=== PATIENT | female | born 1965 | race Caucasian/White ===

== ENCOUNTER 2016-09-08 19:03 | Emergency (ER) | payer OTHER ==
[2016-09-08 19:30] VITALS: BP 143/73
--- NOTE | 2016-09-08 20:35 | RAD ---
Indication: Pain on palpation anterolateral aspect LEFT knee following injury. Comparison: No relevant prior exams available on [place] [facility] [place]. Technique: LEFT knee: AP, tunnel, lateral, sunrise views. Report: Normal articular alignment. Negative for effusion or fracture. No significant arthropathic change evident. Unremarkable soft tissue contours. IMPRESSION: Negative exam.
--- NOTE | 2016-09-08 20:38 | RAD ---
Indication: Severe low back pain when bending post fall last night. Comparison: January 31, 2016 CT. Technique: AP and lateral views lumbar sacral spine. Report: Alignment is anatomic. No cortical disruption or trabecular impaction to indicate a vertebral body fracture. Diffuse mild vertebral endplate osteophytosis. Negative for significant disc space narrowing. Diffuse facet joint osteoarthritis increasing in severity extending caudal. Unremarkable soft tissue contours. Peripheral eggshell pattern calcified nodules at the RIGHT upper quadrant corresponding with gallstones on CT. IUD noted. IMPRESSION: No traumatic injury of the lumbar sacral spine evident. Mild degenerative spondylosis and facet joint osteoarthritis.
--- NOTE | 2016-09-08 21:19 | UC ---
Minor Trauma HPI - HPI Summary HPI Summary: FALL DOWN STEPS THIS MORNING, SINCE INJURY HAS HAD LOW BACK PAIN AND LEFT KNEE PAIN. HISTORY OF OSTEOPENIA. NO LOSS OF CONTROL OF BLADDER OR BOWELS. ABLE TO BEAR WEIGHT. - History of Current Complaint Chief Complaint: UCBackPain Stated Complaint: BACK,ARM,LEG INJURIES FROM FALL Time Seen by Provider: 09/08/16 19:54 Hx Obtained From: Patient Hx Last Menstrual Period: 1 week ago Onset/Duration: Sudden Onset, Lasting Hours, Still Present Onset Of Pain: Post Accident Severity Initially: Mild Severity Currently: Mild Mechanism Of Injury: Fall From A Standing Position Aggravating Factor(s): Movement Alleviating Factor(s): Nothing - Risk Factors Penetrating Injury Risk Factors: Negative - Allergies/Home Medications Allergies/Adverse Reactions: Allergies Allergy/AdvReac Type Severity Reaction Status Date / Time No Known Allergies Allergy Verified 09/08/16 19:30 PMH/Surg Hx/FS Hx/Imm Hx Previously Healthy: Yes - Surgical History Surgical History: Yes Surgery Procedure, Year, and Place: thyroidectomy for thyroid cancer - Family History Known Family History: Positive: Hypertension, Diabetes, Other - Cancer Negative: Cardiac Disease - Social History Lives: With Family Alcohol Use: None Substance Use Type: None Smoking Status (MU): Never Smoked Tobacco Review of Systems Constitutional: Negative Skin: Negative Eyes: Negative ENT: Negative Respiratory: Negative Cardiovascular: Negative Gastrointestinal: Negative Genitourinary: Negative Motor: Negative Neurovascular: Negative Musculoskeletal: Arthralgia, Myalgia Neurological: Negative Psychological: Negative All Other Systems Reviewed And Are Negative: Yes Physical Exam Triage Information Reviewed: Yes Appearance: Well-Appearing, Well-Nourished, Pain Distress - MILD Vital Signs: Initial Vital Signs Temp 98.1 F 09/08/16 19:25 Pulse 85 09/08/16 19:25 Resp 20 09/08/16 19:25 BP 143/73 09/08/16 19:25 Pulse Ox 99 09/08/16 19:25 Vital Signs Reviewed: Yes Eye Exam: Normal ENT Exam: Normal ENT: Positive: Normal ENT inspection, Hearing grossly normal, Pharynx normal, TMs normal Dental Exam: Normal Neck exam: Normal Neck: Positive: Supple, Nontender, No Lymphadenopathy Respiratory Exam: Normal Respiratory: Positive: Chest non-tender, Lungs clear, Normal breath sounds, No respiratory distress Cardiovascular Exam: Normal Cardiovascular: Positive: RRR, No Murmur, Pulses Normal Abdominal Exam: Normal Abdomen Description: Positive: Nontender, No Organomegaly Musculoskeletal: Positive: Strength Intact, ROM Intact, No Edema, Other: - PAIN TO PALPATION OF LEFT KNEE AND LEF PATELLA; NEGATIVE MCMURRAYS. NEGATIVE STRAIGHT LEG RAISE TEST Neurological Exam: Normal Psychological Exam: Normal Skin Exam: Normal Minor Trauma Course/Dx - Differential Dx/Diagnosis Differential Diagnosis/HQI/PQRI: Contusion(s), Sprain, Strain Provider Diagnoses: LEFT KNEE CONTUSION; MILD DEGENERATIVE SPONDYLOSIS & FACET JOINT OSTEOARTHRITIS Discharge - Discharge Plan Condition: Stable Disposition: HOME Prescriptions: Cyclobenzaprine TAB* [Flexeril 10 MG TAB*] 10 mg PO BID PRN #10 tab PRN Reason: Spasms Patient Education Materials: Osteoarthritis (ED), Knee Pain (ED), Degenerative Disc Disease (ED) Referrals: Esdras Egan MD [Primary Care Provider] - Additional Instructions: PHYSICAL THERAPY REFERRAL: You have been prescribed physical therapy. Treatments may include stretching, exercise, application of heat or cold, and other modalities. After an injury, PT can reduce swelling and pain. In recovery, PT is used to restore mobility and strength. Your specific treatment goals are: __X___ Reduction of Swelling (EGS, US, ice as needed) __X___ Pain Reduction (EGS, US, ice as needed) __X___ TENS Pack Fitting and Instruction Wound Hydrotherapy Preservation of Mobility __X___ Nondenominational of Mobility __X___ Strength Nondenominational ____X_ Work or Sports Hardening This instruction sheet also serves as your PHYSICAL THERAPY REFERRAL! Please take it with you to the therapist, so he/she will be aware of your diagnosis and treatment plan. You may see the physical therapist of your choice for these treatments, but may wish to check with your insurance to be sure the provider you select is covered. It's important to see the doctor to whom you have been referred for follow up.
== END 2016-09-08 21:15 | disposition home or self-care (01) ==
LOC: UCEAST 19:03
DX: S80.02XA Contusion of left knee, initial encounter (principal); W10.9XXA Fall (on) (from) unspecified stairs and steps, initial encounter; Y93.9 Activity, unspecified; Y92.9 Unspecified place or not applicable; Y99.9 Unspecified external cause status; M47.896 Other spondylosis, lumbar region
CPT/HCPCS: 72100; 99212; G0463

== ENCOUNTER 2021-01-17 09:45 | Inpatient (IN) ==
[2021-03-06] MEDS ORDERED: Buffered Lidocaine 1% SYRIN 1 ml INTRADERM ONE (06:00)
[2021-03-06] MEDS ORDERED: Lactated Ringers 1000 ml BAG 1,000 ML IV SCH (06:00)
[2021-03-06] MEDS ORDERED: ceFAZolin 2 GM PREMIX 2 GM/50 ML BAG ONE (06:15)
[2021-03-06] MEDS ORDERED: Heparin 5000 UNITS/ML 1 mL VIAL ONE (06:15)
[2021-03-06] MEDS ORDERED: ceFAZolin 1 GM ADVAN 1 GM ADDV.VIAL IVPB ONE (06:15)
[2021-03-06] MEDS ORDERED: Bupivacaine 0.5% SDV PF 30ML VIAL ONE (07:07)
[2021-03-06] MEDS ORDERED: Lidocaine 2% w/ EPI 1:200,000 MPF 20 ML SDV VIAL ONE (07:07)
[2021-03-06] MEDS ORDERED: Methylene Blue 0.5 % 50 MG/10 ML AMP IV ONE (07:08)
[2021-03-06] MEDS ORDERED: Midazolam 2 mg/2 ml VIAL 1 mg/ml 2 ml VIAL (2 mg) ONE (07:20)
[2021-03-06] MEDS ORDERED: fentaNYL 250 mcg/5 ml 50 MCG/ML 5 ml VIAL (250 MCG) ONE (07:20)
[2021-03-06] MEDS ORDERED: Rocuronium 50 mg VIAL 10 mg/ml 5 ml VIAL (50 mg) ONE ×2 (07:20→09:11)
[2021-03-06] MEDS ORDERED: Propofol 10 MG/ML 20 ML BTL ONE ×2 (07:24→11:11)
[2021-03-06] MEDS ORDERED: Lidocaine 2% PF 5 ML VIAL ONE ×2 (07:24→11:11)
[2021-03-06] MEDS ORDERED: Succinylcholine 200 mg VIAL 20 mg/ml 10 ml VIAL (200 mg) ONE (07:35)
[2021-03-06] MEDS ORDERED: Artificial Tear OPHTH.OINT 3.5 GM ONE (08:14)
[2021-03-06] MEDS ORDERED: Dexamethasone IV 4 MG/ML VIAL 1 ml VIAL ONE (08:27)
[2021-03-06] MEDS ORDERED: Ondansetron 4 mg VIAL 2 MG/ML 2 ml VIAL ONE (08:27)
[2021-03-06] MEDS ORDERED: Naloxone 0.4 mg VIAL 0.4 mg/ml 1 ml VIAL IV PRN (09:50)
[2021-03-06] MEDS ORDERED: DiMENhydriNATE IV 50 mg/ml 1 ml VIAL IV PUSH PRN (09:50)
[2021-03-06] MEDS ORDERED: HYDROmorphone 1 MG/1 ML SYRINGE IV PRN (09:50)
[2021-03-06] MEDS ORDERED: fentaNYL 100 mcg/2 ml 50 MCG/ML VIAL IV PRN (09:50)
[2021-03-06] MEDS ORDERED: Ondansetron 4 mg VIAL 2 MG/ML 2 ml VIAL IV PRN ×2 (09:50→10:59)
[2021-03-06] MEDS ORDERED: Acetaminophen IV 1 GM/100ML 100 ML IV ONE ×2 (09:50→09:59)
[2021-03-06] MEDS ORDERED: HYDROmorphone 0.5 MG/0.5 ML SYRINGE ONE ×2 (10:12→10:13)
[2021-03-06] MEDS ORDERED: Phenylephrine 40 mcg/mL 10mL (400mcg) SYRINGE ONE (10:17)
[2021-03-06] MEDS ORDERED: Sugammadex 500 MG/5 ML 5 ml VIAL IV PUSH ONE (10:26)
[2021-03-06] MEDS ORDERED: HYDROmorphone 1 MG/1 ML SYRINGE IV SLOW PU PRN (11:02)
[2021-03-06] MEDS ORDERED: HYDROmorphone 0.5 MG/0.5 ML SYRINGE IV SLOW PU PRN (11:02)
[2021-03-06] MEDS ORDERED: diPHENhydraMINE IV 50 MG/ML 1 ml VIAL (BENADRYL) SLOW PUSH PRN (11:02)
[2021-03-06] MEDS ORDERED: Albuterol HFA INHALER 8 gm MDI INH PRN (11:04)
[2021-03-06] MEDS: Lactated Ringers 1000 ml BAG 1,000 ML IV SCH ×2 (12:54→20:20)
[2021-03-06] MEDS: Acetaminophen IV 1 GM/100ML 100 ML IV SCH ×2 (13:02→18:09)
[2021-03-06] MEDS: Heparin 5000 UNITS/ML 1 mL VIAL SUBCUT SCH ×2 (13:05→22:14)
[2021-03-06] MEDS ORDERED: Dextrose 50% Syringe 50 ml 25 GM/50 ML SYRINGE IV PUSH PRN (15:34)
[2021-03-06] MEDS: Famotidine IV 10 MG/ML 2 ml VIAL (20 mg) IV SLOW PU SCH (22:14)
[2021-03-07] MEDS: Acetaminophen IV 1 GM/100ML 100 ML IV SCH ×3 (00:19→13:08)
[2021-03-07] MEDS: Lactated Ringers 1000 ml BAG 1,000 ML IV SCH ×2 (03:22→10:45)
[2021-03-07] MEDS ORDERED: Levothyroxine 100 MCG/5 ML VIAL IV SCH (06:00)
[2021-03-07] MEDS: Heparin 5000 UNITS/ML 1 mL VIAL SUBCUT SCH ×2 (06:34→17:29)
[2021-03-07] MEDS: Famotidine IV 10 MG/ML 2 ml VIAL (20 mg) IV SLOW PU SCH (08:33)
[2021-03-07] MEDS ORDERED: D5W 1/2 NS KCl 20 meq 1000 ml 1,000 ML IV SCH (11:00)
[2021-03-07 15:44] VITALS: BP 152/77
== END 2021-03-07 17:20 | disposition home or self-care (01) | DRG 621 ==
LOC: AA 03-06 05:38 → SSU 03-06 12:22
PROVIDERS: ADMIT Surgery; ATTEND Surgery